=== PATIENT | female | born 2000 | race Caucasian/White ===

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

== ENCOUNTER 2022-10-30 12:16 | Emergency (ER) | payer OTHER ==
[2022-10-30] MEDS ORDERED: Loratadine 10 MG Tab PO ONE ×2 (12:17→13:46)
[2022-10-30] MEDS ORDERED: predniSONE 20 MG Tab PO ONE ×2 (12:17→13:46)
[2022-10-30 13:16] LABS: CORONAVIRUS COVID-19 NAA NEGATIVE (NEGATIVE); RESPIRATORY SYNCYTIAL VIR NAA NEGATIVE (NEGATIVE)
[2022-10-30] MEDS ORDERED: Famotidine 20 MG Tab PO ONE (13:46)
[2022-10-30] MEDS ORDERED: predniSONE 20 MG Tab ONE (13:56)
[2022-10-30] MEDS ORDERED: Loratadine 10 MG Tab ONE (14:01)
== END 2022-10-30 14:06 | disposition home or self-care (01) ==
LOC: DL.ED 12:16
DX: T59.91XA Toxic effect of unspecified gases, fumes and vapors, accidental (unintentional), initial encounter (principal); J68.0 Bronchitis and pneumonitis due to chemicals, gases, fumes and vapors; L24.5 Irritant contact dermatitis due to other chemical products; Z20.822 Contact with and (suspected) exposure to COVID-19
CPT/HCPCS: 0241U; 87081; 87430; 99283; A9270; J7512